=== PATIENT | female | born 1965 | race Caucasian/White ===

== ENCOUNTER → 2017-05-13 | Outpatient (CLI) | payer MEDICARE, OTHER ==
[~2017-05-13] MED LIST: ALBUTEROL17 GM INH; BACTRIM DS TABL1 TAB PO; BENADRYL PO; CLEOCIN PO; CYTOMEL; EC-NAPROSYN500 MG PO; PREDNISONE PO; PROZAC PO; SINGULAIR PO; TOPAMAX PO; ZANAFLEX PO
--- NOTE | ~2017-05-13 | CT55 ---
[facility] A Service of [facility] & [facility] RADIOLOGY TEXT RESULTS PATIENT: ALEXANDER CORDOVA LOCATION: [facility] : [birth year] UNIT #: [id number] AGE: [address]: León Williamson MD SEX: F ORDER DR: [id number] [facility] [address] [place], [place] [address] [id number] O MR#: [id number] Acc #: [id number] NAME: ALEXANDER CORDOVA : 1965 SEX: F STUDY DATE/TIME: 05/13/2017 9:36 UNIT: [facility] ROOM: STUDY DESCRIPTION: CT Chest W Con Attending Physician: León Williamson M.D. Referring Physician: León Willimason M.D. Ordering Physician: León Williamson M.D. Primary Care Physician: León Williamson M.D. MEDICAL IMAGING REPORT This report is preliminary unless electronic signature is present REVISED REPORT EXAM CT chest with contrast INDICATION Abnormal chest radiograph from the patient's doctor's office that showed hilar lymphadenopathy. This chest x-ray was performed 2 weeks ago. TECHNIQUE Axial CT images was obtained from the thoracic inlet through the dome of the diaphragm following the administration of intravenous contrast material. This CT exam was performed with one or more of the following radiation dose reduction techniques: Automatically exposure control, adjustment of mA and / kV according to patient size, and iterative reconstruction. FINDINGS Lungs are clear. No suspicious pulmonary nodules or masses are seen. The thyroid gland, trachea, and esophagus appear unremarkable. There is no pleural or pericardial effusion. Mediastinal and hilar nodes do not appear pathologically enlarged. Thoracic aorta measures within normal size limits. This patient has a fat-attenuation lesion seen within the superior pole of the right kidney, extending down towards the right renal pelvis. This lesion measures up to 6.8 x 3.2 cm. It was present in November 2007, but has significantly increased in size. It previously measured 3.1 x 2.1 cm. Its appearance is characteristic of an angiomyolipoma. Angiomyolipomas greater than 4 cm require evaluation or treatment, as they can spontaneously hemorrhage. A second low attenuation lesion is identified STS. [facility] A Service of [facility] & [facility] RADIOLOGY TEXT RESULTS PATIENT: ALEXANDER CORDOVA LOCATION: [facility] : [birth year] UNIT #: [id number] AGE: [address]: León Williamson MD SEX: F ORDER DR: within the left kidney; it measures about 1.5 cm in size and I do not think is significantly changed when compared to the November 29, 2007 examination. Patient is status post cholecystectomy, and there is some dilatation of the common bile duct measuring up to about 1-cm in size. Review of bone windows does not demonstrate any aggressive osseous abnormalities. IMPRESSION 1. No acute intrathoracic process is seen. Lungs appear clear. There is no adenopathy identified within the thorax. 2. This patient has a large of fat containing lesion arising from the right kidney, measuring up to 6.8 x 3.2 cm; it previously measured 3.1 x 2.1 cm. Its appearance is characteristic of an angiomyolipoma. While these are benign tumors, these can spontaneously hemorrhage, and consideration for therapy is usually recommended for lesions greater than 4 cm in size. Urologic consultation is recommended. 3. A second low-attenuation lesion is seen within the medial aspect of the left kidney that I suspect reflects an additional angiomyolipoma, but this only measures about 1.5 cm in size and is not significantly changed when compared to the November 29, 2007 examination. 4. Please see the body of the report for any other additional incidental findings. Please note, I would also recommend further evaluation of the angiomyolipoma with renal protocol CT, which will allow full assessment of the lesion. Findings were discussed with Dr. Willimason at the time of this dictation. Dictated by... Lexy Dorman M.D. THIS IS AN ELECTRONICALLY VERIFIED REPORT Lexy Dorman M.D. at 06/09/2017 10:46 PM NADIR/cash TD: 05/13/2017 16:32 JOB #: [id number] MEDICAL IMAGING REPORT Page 1 of 1 COPY
[2017-05-13 15:21] LABS: POC - CREATININE 1.14 mg/dL (0.44-1.03)
== END | disposition home or self-care (01) ==
LOC: CCAT 05-12 14:40
PROVIDERS: Family Medicine
DX: J45.909 Unspecified asthma, uncomplicated (principal); R93.8 Abnormal findings on diagnostic imaging of other specified body structures; N28.89 Other specified disorders of kidney and ureter
CPT/HCPCS: 71260; 82565; Q9967

== ENCOUNTER → 2017-05-23 | Outpatient (CLI) | payer MEDICARE, OTHER ==
--- NOTE | ~2017-05-23 | CT6 ---
[facility] A Service of [facility] & [facility] RADIOLOGY TEXT RESULTS PATIENT: ALEXANDER CORDOVA [facility] : [birth year] UNIT #: [id number] AGE: [address]: León Williamson MD SEX: F ORDER DR: [id number] [facility] [address] [place], [place] [address] [id number] O MR#: [id number] [facility] #: [id number] NAME: ALEXANDER CORDOVA : 1965 SEX: F STUDY DATE/TIME: 05/23/2017 11:33 UNIT: [facility] ROOM: STUDY DESCRIPTION: CT Abdomen WWo Cont Attending Physician: León Williamson M.D. Referring Physician: León Williamson M.D. Ordering Physician: León Williamson M.D. Primary Care Physician: León Williamson M.D. MEDICAL IMAGING REPORT This report is preliminary unless electronic signature is present EXAM CT abdomen without and with contrast (renal imaging protocol), 05/23/2017 HISTORY Upper abdominal pain for 6 months with nausea. Bilateral renal angiomyolipomas as documented on previous CT chest for which additional CT abdominal imaging was recommended for complete evaluation. COMPARISON CT chest with contrast 05/13/2017, CT abdomen and pelvis without contrast 11/29/2007. PROCEDURE Precontrast and dynamic postcontrast imaging was obtained through the abdomen with attention to the kidneys, including delayed 3-minute excretory phases. Sagittal and coronal reformatted images were obtained. Enteric contrast was not administered. This CT exam was performed with one or more of the following radiation dose reduction techniques: automatic exposure control, adjustment of mA and/or kV according to patient size, and iterative reconstruction. FINDINGS ABDOMEN FINDINGS: Benign bilateral renal angiomyolipomas are redemonstrated. The largest is seen within the right mid kidney measuring approximately 7.1 x 3.6 cm, and is larger than on the 2007 examination where it measured 2.1 x 3.1 cm. A left renal angiomyolipoma is seen in the medial cortex of the mid kidney measuring approximately 1.7 x 1.4 cm, and is thought to be roughly stable since the 2008 examination. No evidence of acute hemorrhage. No suspicious filling defects within renal collecting systems on delayed excretory phase imaging. [facility] A Service of [facility] & [facility] RADIOLOGY TEXT RESULTS PATIENT: ALEXANDER CORDOVA LOCATION: [facility] : [birth year] UNIT #: [id number] AGE: [address]: León Williamson MD SEX: F ORDER DR: Imaged lung bases appear free of acute airspace disease. On noncontrast imaging, no urinary tract stone or hydronephrosis is identified. There is focal cortical scarring in the posterior right mid kidney. On postcontrast imaging, the liver, spleen, pancreas and adrenal glands appear normal. The gallbladder is surgically absent. No adenopathy. No free fluid. Bowel appears unremarkable. IMPRESSION 1. Benign bilateral renal angiomyolipomas. The right renal angiomyolipoma is significantly larger than on the 2008 examination. Of note, literature suggests that angiomyolipomas greater than 4.0 cm in size have a greater propensity for spontaneous hemorrhage. Urologic consultation is advised. 2. Stable appearance of smaller left renal angiomyolipoma measuring 1.4 x 1.7 cm. 3. No acute findings are seen within the abdomen. 4. Cholecystectomy. Dictated by... Nica Becerra M.D. THIS IS AN ELECTRONICALLY VERIFIED REPORT Nica Becerra M.D. at 05/26/2017 7:33 AM Ari TD: 05/24/2017 16:53 JOB #: [id number] MEDICAL IMAGING REPORT Page 1 of 1 COPY
[2017-05-23 18:35] LABS: POC - CREATININE 1.03 mg/dL (0.44-1.03); POC - GFR >60.0 mL/min (>60)
== END | disposition home or self-care (01) ==
LOC: CCAT 05-21 11:30
PROVIDERS: Family Medicine
DX: K76.9 Liver disease, unspecified (principal); D17.71 Benign lipomatous neoplasm of kidney; Z90.49 Acquired absence of other specified parts of digestive tract
CPT/HCPCS: 74170; 82565; Q9967